=== PATIENT | female | born 1995 | race Caucasian/White ===

== ENCOUNTER 2018-07-08 21:22 | Emergency (ER) | payer SELFPAY ==
[~2018-07-08] VITALS: Ht 160 cm; Wt 70.3 kg
[2018-07-08 21:26] VITALS: BP 130/90
--- NOTE | 2018-07-08 21:28 | NUR ---
TO LOBBY A/W BED, AMBULATORY
--- NOTE | 2018-07-08 23:07 | NUR ---
PATIENT AMBULATED TO ER BED 9.
--- NOTE | 2018-07-08 23:10 | NUR ---
22 Y/O F PRESENTS WITH LEFT FLANK PAIN STARTED THIS MORNING. PT DENIES PAIN WITH URINATION. PT AAOX 4, GCS 15. RR EVEN/UNLABORED. DENIES ANY TRAUMA TO THE AREA. +CMS. PERIPHERAL PULSES PRESENT. SKIN WARM AND DRY TO TOUCH. UPDATED ON POC.
--- NOTE | 2018-07-08 23:35 | NUR ---
Dr. Ott evaluating patient at bedside.
[2018-07-08] MEDS ORDERED: KETOROLAC 60 MG/2 ML VIAL IM ONE (23:45)
[2018-07-08] MEDS ORDERED: cefTRIAXone 1,000 MG in LIDOCAINE MPF 1% - 5 mL VIAL 2.1 ML IM ONE (23:45)
--- NOTE | 2018-07-09 00:30 | NUR ---
PT RESTING IN BED. NAD NOTED. RR EVEN/UNLABORED. WAITING D/C PAPERWORK
--- NOTE | 2018-07-09 01:29 | NUR ---
Brodie espinosa in [facility] - 07/09/18 at [address] Ott evaluating patient at bedside.
[2018-07-09 01:35] VITALS: BP 122/84
--- NOTE | 2018-07-09 01:35 | NUR ---
Patient discharged with v/s stable. Written and verbal after care instructions given and explained. Patient alert, oriented and verbalized understanding of instructions. Ambulatory with steady gait. All questions addressed prior to discharge. ID band removed. Patient advised to follow up with PMD. Rx of MOTRIN AND BACTRIM DS given. Patient educated on indication of medication including possible reaction and side effects. Opportunity to ask questions provided and answered.
== END 2018-07-09 01:35 | disposition home or self-care (01) ==
LOC: MED 21:22
DX: N12 Tubulo-interstitial nephritis, not specified as acute or chronic (principal)
CPT/HCPCS: 81002; 81025; 96372; 99283; J0696; J1885; J2001